=== PATIENT | female | born 1990 | race Caucasian/White ===

== ENCOUNTER 2019-02-02 20:00 | Emergency (ER) | payer MEDICAID ==
[~2019-02-02] VITALS: Ht 165.1 cm; Wt 81.8 kg
[~2019-02-02 20:00] MED LIST: NITR100C6 PO
[2019-02-02] MEDS ORDERED: FLUT16SP2 BOTHNARES (20:57)
[2019-02-02] MEDS ORDERED: COROTSUS OT (20:57)
[2019-02-02 21:15] VITALS: BP 123/72
== END 2019-02-02 21:19 | disposition home or self-care (01) ==
LOC: ER 20:01
DX: H60.92 Unspecified otitis externa, left ear (principal); Z79.899 Other long term (current) drug therapy
CPT/HCPCS: 99283

== ENCOUNTER 2019-02-14 11:13 | Emergency (ER) | payer MEDICAID ==
[~2019-02-14] VITALS: Ht 162.6 cm; Wt 82.0 kg
[~2019-02-14 11:13] MED LIST changes: +COROTSUS OT; +FLUT16SP2 BOTHNARES
[2019-02-14 11:22] VITALS: BP 116/67
[2019-02-14] MEDS ORDERED: PRED20TA PO (12:04)
== END 2019-02-14 12:23 | disposition home or self-care (01) ==
LOC: ER 11:13
DX: H69.82 Other specified disorders of Eustachian tube, left ear (principal); Z79.899 Other long term (current) drug therapy
CPT/HCPCS: 99283

== ENCOUNTER 2021-09-05 18:41 | Emergency (ER) | payer MEDICAID ==
[~2021-09-05] VITALS: Ht 165.1 cm; Wt 86.4 kg
[2021-09-05 19:09] VITALS: BP 127/82
[2021-09-05] MEDS ORDERED: FEXO180T94 PO (19:32)
== END 2021-09-05 19:59 | disposition home or self-care (01) ==
LOC: ER 18:41
DX: L29.9 Pruritus, unspecified (principal); R20.2 Paresthesia of skin; R20.8 Other disturbances of skin sensation; Z79.899 Other long term (current) drug therapy; Z79.2 Long term (current) use of antibiotics; Z87.440 Personal history of urinary (tract) infections
CPT/HCPCS: 99282